=== PATIENT | male | born 1940 | race Hispanic/Latino ===

== ENCOUNTER 2020-07-04 18:33 | Emergency (ER) | payer MEDICARE, OTHER ==
[~2020-07-04 18:33] MED LIST: FISH12002 PO; LEVO500T2 PO; LOSA25TA41 PO; OMEP20CA12 PO; OSEL75 PO; PRAV20TA4 PO; TRAM50TA4 PO
[2020-07-04 19:13] LABS: BASOPHILS % (AUTO) 0.1 % (0.0-5.0); EOSINOPHILS % (AUTO) 4.9 % (0.0-8.0); HEMATOCRIT 32.6 % (42-54); LYMPHOCYTES % (AUTO) 18.3 % (21.0-51.0); MEAN CORPUSCULAR HEMOGLOBIN 30.1 pg (27.0-33.0); MEAN CORPUSCULAR HGB CONC 32.2 g/dL (32.0-36.0); MEAN CORPUSCULAR VOLUME 93.4 fL (79-99); MONOCYTES % (AUTO) 11.7 % (3.0-13.0); NEUTROPHILS % (AUTO) 64.7 % (40.0-77.0); PLATELET COUNT (AUTO) 301 K/uL (130-400); RED BLOOD CELL COUNT(AUTO) 3.49 MIL/uL (4.50-6.20); RED CELL DISTRIBUTION WIDTH 13.6 % (11.0-15.5); WHITE BLOOD COUNT (AUTO) 9.6 K/uL (4.8-10.8)
[2020-07-04] MEDS ORDERED: ONDANSETRON HCL 4 MG/2 ML VIAL ONE ×2 (19:21→21:46)
[2020-07-04] MEDS ORDERED: MORPHINE SULFATE 4 MG/1ML SYG ONE ×2 (19:21→21:44)
[2020-07-04 19:25] LABS: APPEARANCE,URINE Cloudy (CLEAR); BILIRUBIN,URINE Negative (NEGATIVE); COLOR,URINE Yellow (YELLOW); GLUCOSE, URINE (UA) Negative (NEGATIVE); KETONES,URINE Negative (NEGATIVE); LEUKOCYTE ESTERASE ,URINE Trace (NEGATIVE); NITRATE,URINE Negative (NEGATIVE); OCCULT BLOOD,URINE Large (NEGATIVE); PROTEIN,URINE Trace mg/dL (NEGATIVE)
[2020-07-04 19:26] LABS: CREATININE 1.1 mg/dL (0.5-1.5); POTASSIUM 3.7 mmol/L (3.5-5.1)
[2020-07-04 19:31] LABS: ALBUMIN 2.6 g/dL (3.5-5.0); BILIRUBIN,TOTAL 0.2 mg/dL (0.2-1.0); TOTAL PROTEIN, SERUM 7.1 g/dL (6.0-8.3)
[2020-07-04 19:36] LABS: BACTERIA,URINE Rare /HPF (None Seen); YEAST,URINE BUDDING Few /HPF (None Seen)
[2020-07-04 19:37] LABS: SQUAMOUS EPITHELIAL CELL,UR Rare /HPF (0-2)
[2020-07-04] MEDS ORDERED: IOHEXOL-350 75 ML VIAL IV ONE (19:50)
== END 2020-07-04 22:44 | disposition home or self-care (01) ==
LOC: EDH 18:33
DX: N28.1 Cyst of kidney, acquired (principal); R10.11 Right upper quadrant pain; R31.9 Hematuria, unspecified; K76.0 Fatty (change of) liver, not elsewhere classified; K83.8 Other specified diseases of biliary tract; I10 Essential (primary) hypertension; G43.909 Migraine, unspecified, not intractable, without status migrainosus
CPT/HCPCS: 36415; 71045; 74177; 76705; 80053; 81001; 83605; 83690; 85025; 87040 ×2; 96374; 96375; 99285; J2270 ×2; J2405 ×2; Q9967

== ENCOUNTER 2020-08-09 18:42 | Emergency (ER) | payer OTHER ==
[2020-08-09] MEDS ORDERED: CYCLOBENZAPRINE HCL 10 MG TABLET ONE (19:12)
[2020-08-09] MEDS ORDERED: HYDROCODONE/ACETAMINOPHEN 10/325 MG TAB ONE (19:13)
[2020-08-09 19:49] LABS: BASOPHILS % (AUTO) 0.3 % (0.0-5.0); HEMATOCRIT 26.3 % (42-54); LYMPHOCYTES % (AUTO) 9.8 % (21.0-51.0); MEAN CORPUSCULAR HEMOGLOBIN 29.7 pg (27.0-33.0); MEAN CORPUSCULAR HGB CONC 32.7 g/dL (32.0-36.0); MEAN CORPUSCULAR VOLUME 90.7 fL (79-99); MONOCYTES % (AUTO) 9.1 % (3.0-13.0); PLATELET COUNT (AUTO) 260 K/uL (130-400); RED CELL DISTRIBUTION WIDTH 15.2 % (11.0-15.5); WHITE BLOOD COUNT (AUTO) 13.1 K/uL (4.8-10.8)
[2020-08-09 19:51] LABS: APPEARANCE,URINE Clear (CLEAR); BILIRUBIN,URINE Negative (NEGATIVE); COLOR,URINE Yellow (YELLOW); GLUCOSE, URINE (UA) Negative (NEGATIVE); KETONES,URINE Negative (NEGATIVE); LEUKOCYTE ESTERASE ,URINE Small (NEGATIVE); NITRATE,URINE Negative (NEGATIVE); OCCULT BLOOD,URINE Large (NEGATIVE); PH,URINE 5.5 (5.0-8.0); PROTEIN,URINE POS 2+ mg/dL (NEGATIVE)
[2020-08-09 20:01] LABS: CREATININE 1.5 mg/dL (0.5-1.5); POTASSIUM 4.2 mmol/L (3.5-5.1)
[2020-08-09 20:06] LABS: ALBUMIN 2.3 g/dL (3.5-5.0); BILIRUBIN,TOTAL 0.3 mg/dL (0.2-1.0); TOTAL PROTEIN, SERUM 8.1 g/dL (6.0-8.3)
[2020-08-09 20:07] LABS: BACTERIA,URINE Few /HPF (None Seen); MUCUS,URINE Few LPF (None Seen); SQUAMOUS EPITHELIAL CELL,UR Few /HPF (0-2)
[2020-08-09] MEDS ORDERED: LIDOCAINE HCL-MPF 1% 2ML VIAL ONE (20:28)
[2020-08-09] MEDS ORDERED: CEFTRIAXONE SODIUM 1 GM ONE (20:28)
== END 2020-08-09 21:14 | disposition home or self-care (01) ==
LOC: EDH 18:42
DX: D64.9 Anemia, unspecified (principal); N30.90 Cystitis, unspecified without hematuria; G62.9 Polyneuropathy, unspecified; I10 Essential (primary) hypertension; G43.909 Migraine, unspecified, not intractable, without status migrainosus
CPT/HCPCS: 36415; 80053; 81001; 85025; 96372; 99283; J0696; J3490

== ENCOUNTER 2020-08-19 10:06 | Observation (INO) | payer OTHER ==
[~2020-08-19] VITALS: Ht 162.6 cm; Wt 67.0 kg
[2020-08-19 10:54] LABS: BASOPHILS % (AUTO) 0.1 % (0.0-5.0); EOSINOPHILS % (AUTO) 0.2 % (0.0-8.0); HEMATOCRIT 25.1 % (42-54); LYMPHOCYTES % (AUTO) 6.1 % (21.0-51.0); MEAN CORPUSCULAR HEMOGLOBIN 28.2 pg (27.0-33.0); MEAN CORPUSCULAR HGB CONC 31.5 g/dL (32.0-36.0); MEAN CORPUSCULAR VOLUME 89.6 fL (79-99); MONOCYTES % (AUTO) 6.7 % (3.0-13.0); NEUTROPHILS % (AUTO) 85.8 % (40.0-77.0); PLATELET COUNT (AUTO) 365 K/uL (130-400); RED CELL DISTRIBUTION WIDTH 15.6 % (11.0-15.5); WHITE BLOOD COUNT (AUTO) 15.8 K/uL (4.8-10.8)
[2020-08-19] MEDS ORDERED: ONDANSETRON 4MG INJ ONE (10:56)
[2020-08-19 11:15] LABS: ALBUMIN 1.9 g/dL (3.5-5.0); BILIRUBIN,TOTAL 0.3 mg/dL (0.2-1.0); CREATININE 1.3 mg/dL (0.5-1.5); TOTAL PROTEIN, SERUM 7.6 g/dL (6.0-8.3)
[2020-08-19 11:18] LABS: B-TYPE NATRIURETIC PEPTIDE 320 pg/mL (0-100)
[2020-08-19] MEDS ORDERED: LEVOFLOXACIN 500 MG/D5W 100 ML 100 ML ONE (12:39)
[2020-08-19 12:40] LABS: APPEARANCE,URINE CLEAR (CLEAR); BILIRUBIN,URINE NEGATIVE (NEGATIVE); COLOR,URINE YELLOW (YELLOW); GLUCOSE, URINE (UA) NEGATIVE (NEGATIVE); KETONES,URINE NEGATIVE (NEGATIVE); LEUKOCYTE ESTERASE ,URINE NEGATIVE (NEGATIVE); NITRATE,URINE NEGATIVE (NEGATIVE); OCCULT BLOOD,URINE LARGE (NEGATIVE); PH,URINE 5.5 (5.0-8.0); PROTEIN,URINE 100 mg/dL (NEGATIVE)
[2020-08-19 13:08] LABS: BACTERIA,URINE Few /HPF (None Seen)
[2020-08-19] MEDS ORDERED: KCL 20 MEQ ERTAB PO PRN (16:00)
[2020-08-19] MEDS ORDERED: ONDANSETRON 4MG INJ IVP PRN (16:00)
[2020-08-19] MEDS ORDERED: POTASSIUM CHLORIDE 20MEQ/100ML 100 ML IV PRN ×2 (16:00)
[2020-08-19] MEDS ORDERED: ACETAMINOPHEN 650 MG SUPPOSITORY RC PRN (16:00)
[2020-08-19] MEDS ORDERED: DEXTROSE 50%-WATER 50 ML DISP.SYRIN IV PRN (16:00)
[2020-08-19] MEDS ORDERED: DOCUSATE SODIUM 100 MG CAP PO PRN (16:00)
[2020-08-19] MEDS ORDERED: ACETAMINOPHEN 325 MG TAB PO PRN (16:00)
[2020-08-19] MEDS ORDERED: LIDOCAINE HCL-MPF 1% 2ML VIAL IV PRN ×2 (16:00)
[2020-08-19] MEDS ORDERED: GLUCAGON 1MG KIT 1 MG ML IM PRN (16:00)
[2020-08-19] MEDS ORDERED: LACTULOSE 20 GM/30 ML UDCUP PO PRN (16:00)
[2020-08-19] MEDS: INSULIN HUMULIN R 100 UNIT/ML 3ML SQ SCH ×3 (16:30→21:35)
[2020-08-19] MEDS: METRONIDAZOLE 500MG/100ML BAG 100 ML IVPB SCH (17:00)
[2020-08-19 20:35] VITALS: BP 189/93
[2020-08-19 23:10] VITALS: BP 183/93
[2020-08-20] VITALS (16 sets, daily range): BP systolic 96–174; BP diastolic 50–78
[2020-08-20] MEDS: METRONIDAZOLE 500MG/100ML BAG 100 ML IVPB SCH ×3 (01:08→16:53)
[2020-08-20 05:58] LABS: BASOPHILS % (AUTO) 0.1 % (0.0-5.0); EOSINOPHILS % (AUTO) 0.1 % (0.0-8.0); HEMATOCRIT 23.9 % (42-54); LYMPHOCYTES % (AUTO) 8.5 % (21.0-51.0); MEAN CORPUSCULAR HEMOGLOBIN 29.1 pg (27.0-33.0); MEAN CORPUSCULAR HGB CONC 32.6 g/dL (32.0-36.0); MEAN CORPUSCULAR VOLUME 89.2 fL (79-99); MONOCYTES % (AUTO) 6.9 % (3.0-13.0); NEUTROPHILS % (AUTO) 83.5 % (40.0-77.0); PLATELET COUNT (AUTO) 322 K/uL (130-400); RED BLOOD CELL COUNT(AUTO) 2.68 MIL/uL (4.50-6.20); RED CELL DISTRIBUTION WIDTH 15.9 % (11.0-15.5); WHITE BLOOD COUNT (AUTO) 16.3 K/uL (4.8-10.8)
[2020-08-20 06:15] LABS: INR 1.14 (0.85-1.15); PROTHROMBIN TIME 12.3 SEC (9.6-11.6)
[2020-08-20 06:17] LABS: PARTIAL THROMBOPLASTIN TIME 27.2 SEC (26.3-35.5)
[2020-08-20 06:24] LABS: % IRON SATURATION 19.3 % (30-44)
[2020-08-20 06:28] LABS: CREATININE 1.2 mg/dL (0.5-1.5); MAGNESIUM 1.8 mg/dL (1.80-2.40); PHOSPHORUS 3.5 mg/dL (2.5-4.9); POTASSIUM 3.1 mmol/L (3.5-5.1)
[2020-08-20] MEDS ORDERED: PROPOFOL 10 MG/ML 20ML VIAL IV ONE (08:20)
[2020-08-20] MEDS ORDERED: LIDOCAINE HCL 1% 20 ML VIAL ONE (08:20)
[2020-08-20] MEDS ORDERED: LEVOFLOXACIN 500 MG/D5W 100 ML IV SCH (09:00)
[2020-08-20] MEDS: POLYETHYLENE GLYCOL 3350 17 GM POWD.PACK PO SCH (10:48)
[2020-08-20] MEDS: PANTOPRAZOLE 40 MG TAB DR PO SCH (10:48)
[2020-08-20] MEDS: POTASSIUM CHLORIDE 10% ELIXIR 20 MEQ/15 ML UDCUP PO PRN ×3 (10:49→16:46)
[2020-08-20] MEDS: INSULIN HUMULIN R 100 UNIT/ML 3ML SQ SCH ×3 (11:30→21:00)
[2020-08-20] MEDS: LEVOFLOXACIN 250 MG/D5W 50ML 50 ML IVPB SCH (11:47)
[2020-08-20] MEDS ORDERED: COMPOUND IV MISC 1 EACH IVSOLN MISC PRN (18:30)
[2020-08-21 00:40] VITALS: BP 139/75
[2020-08-21 00:41] VITALS: BP 115/74
[2020-08-21] MEDS: METRONIDAZOLE 500MG/100ML BAG 100 ML IVPB SCH ×2 (01:00→08:02)
[2020-08-21 04:00] VITALS: BP 157/71
[2020-08-21 05:03] LABS: HEMATOCRIT 22.9 % (42-54); MEAN CORPUSCULAR HEMOGLOBIN 28.7 pg (27.0-33.0); MEAN CORPUSCULAR HGB CONC 31.4 g/dL (32.0-36.0); MEAN CORPUSCULAR VOLUME 91.2 fL (79-99); RED BLOOD CELL COUNT(AUTO) 2.51 MIL/uL (4.50-6.20); RED CELL DISTRIBUTION WIDTH 16.4 % (11.0-15.5); WHITE BLOOD COUNT (AUTO) 14.4 K/uL (4.8-10.8)
[2020-08-21 05:24] LABS: CREATININE 1.3 mg/dL (0.5-1.5); POTASSIUM 3.7 mmol/L (3.5-5.1)
[2020-08-21] MEDS: INSULIN HUMULIN R 100 UNIT/ML 3ML SQ SCH ×3 (06:04→16:00)
[2020-08-21] MEDS ORDERED: HYDROCODONE/ACETAMINOPHEN 5/325 MG TAB ONE (06:21)
[2020-08-21 07:58] VITALS: BP 133/62
[2020-08-21] MEDS: PANTOPRAZOLE 40 MG TAB DR PO SCH (08:02)
[2020-08-21] MEDS: POLYETHYLENE GLYCOL 3350 17 GM POWD.PACK PO SCH (08:02)
[2020-08-21] MEDS ORDERED: HYDROCODONE/ACETAMINOPHEN 5/325 MG TAB PO SCH (08:19)
[2020-08-21] MEDS ORDERED: COMPOUND IV MISC 1 EACH IVSOLN MISC PRN (08:30)
[2020-08-21] MEDS ORDERED: IRON SUCROSE COMPLEX 100 MG in 0.9%NACL 50ML 50 ML IV SCH (09:00)
[2020-08-21] MEDS: LEVOFLOXACIN 250 MG/D5W 50ML 50 ML IVPB SCH (11:20)
[2020-08-21 12:17] VITALS: BP 140/72
[2020-08-21] MEDS ORDERED: FERR324T PO (15:44)
[2020-08-21] MEDS ORDERED: LEVO500T90 PO (15:44)
[2020-08-21] MEDS ORDERED: POLY17PO4 PO (15:44)
[2020-08-21] MEDS ORDERED: METR500T PO (15:44)
[2020-08-21] MEDS ORDERED: PANT40GR PO (15:44)
[2021-02-06] MEDS ORDERED: CYCL10TA16 PO (13:52)
== END 2020-08-21 17:36 | disposition home or self-care (01) ==
LOC: EDH 10:06 → EDHIP 15:55 → 4CH 20:10
PROVIDERS: ADMIT Internal Medicine Critical Care Medicine; ATTEND Internal Medicine Critical Care Medicine
DX: K29.70 Gastritis, unspecified, without bleeding (principal); Z20.822 Contact with and (suspected) exposure to COVID-19; R13.10 Dysphagia, unspecified; D64.9 Anemia, unspecified; I10 Essential (primary) hypertension; N39.0 Urinary tract infection, site not specified; N40.0 Benign prostatic hyperplasia without lower urinary tract symptoms; N28.9 Disorder of kidney and ureter, unspecified; G89.29 Other chronic pain; M54.9 Dorsalgia, unspecified; G43.909 Migraine, unspecified, not intractable, without status migrainosus; Z87.891 Personal history of nicotine dependence; Z79.899 Other long term (current) drug therapy
CPT/HCPCS: 36415 ×3; 43239; 71045; 74176; 80048 ×2; 80053; 81001; 82550; 82948 ×7; 83540; 83550; 83605; 83690; 83735; 83880; 84100; 84484; 85025 ×2; 85027; 85610; 85730; 86850; 86900; 86901; 87040 ×2; 87426; 88305; 88342; 92610; 93005; 96365; 96366 ×4; 96367; 96368; 96375; 99285; A4215; A4222; A4223; A4606; A4620; A4657; G0378 ×48; J1756; J1956 ×3; J2405 ×3; J2704; J3490 ×4; J7030; U0003

== ENCOUNTER 2020-08-27 20:11 | Inpatient (IN) | payer OTHER ==
[~2020-08-27] VITALS: Ht 162.6 cm; Wt 65.3 kg
[~2020-08-27 20:11] MED LIST changes: +FERR324T PO; -LEVO500T2 PO; +LEVO500T90 PO; +METR500T PO; -OMEP20CA12 PO; -OSEL75 PO; +PANT40GR PO; +POLY17PO4 PO
[2020-08-27 22:18] LABS: BASOPHILS % (AUTO) 0.2 % (0.0-5.0); LYMPHOCYTES % (AUTO) 2.7 % (21.0-51.0); MEAN CORPUSCULAR HEMOGLOBIN 29.7 pg (27.0-33.0); MEAN CORPUSCULAR HGB CONC 33.1 g/dL (32.0-36.0); MEAN CORPUSCULAR VOLUME 89.7 fL (79-99); MONOCYTES % (AUTO) 2.4 % (3.0-13.0); NEUTROPHILS % (AUTO) 93.2 % (40.0-77.0); PLATELET COUNT (AUTO) 372 K/uL (130-400); WHITE BLOOD COUNT (AUTO) 24.1 K/uL (4.8-10.8)
[2020-08-27 22:28] LABS: CREATININE 1.8 mg/dL (0.5-1.5); POTASSIUM 3.2 mmol/L (3.5-5.1)
[2020-08-27 22:30] LABS: INR 1.21 (0.85-1.15)
[2020-08-27 22:31] LABS: PARTIAL THROMBOPLASTIN TIME 28.2 SEC (26.3-35.5)
[2020-08-27 22:32] LABS: APPEARANCE,URINE Clear (CLEAR); BILIRUBIN,URINE Negative (NEGATIVE); COLOR,URINE Dark Yellow (YELLOW); GLUCOSE, URINE (UA) 250 mg/dL (NEGATIVE); KETONES,URINE Trace mg/dL (NEGATIVE); LEUKOCYTE ESTERASE ,URINE Small (NEGATIVE); NITRATE,URINE Negative (NEGATIVE); OCCULT BLOOD,URINE Large (NEGATIVE); PROTEIN,URINE POS 2+ mg/dL (NEGATIVE)
[2020-08-27 22:41] LABS: ALBUMIN 2.1 g/dL (3.5-5.0); BILIRUBIN,TOTAL 0.4 mg/dL (0.2-1.0); TOTAL PROTEIN, SERUM 7.6 g/dL (6.0-8.3)
[2020-08-27] MEDS ORDERED: METOCLOPRAMIDE 10 MG/2 ML VIAL ONE (22:47)
[2020-08-27] MEDS ORDERED: ONDANSETRON 4MG INJ ONE (22:47)
[2020-08-27] MEDS ORDERED: PANTOPRAZOLE 40 MG/VIAL ONE (22:48)
[2020-08-27] MEDS ORDERED: FAMOTIDINE 20MG VIAL IV ONE (22:48)
[2020-08-27 22:49] LABS: BACTERIA,URINE Rare /HPF (None Seen)
[2020-08-27 22:53] LABS: B-TYPE NATRIURETIC PEPTIDE 165 pg/mL (0-100)
[2020-08-27] MEDS ORDERED: ZOSYN 3.375GM+NS 50ML 50 ML IV ONE (23:32)
[2020-08-28] MEDS ORDERED: MORPHINE 2 MG SYG ONE (01:06)
[2020-08-28] MEDS ORDERED: MAG/ALUM/SIMETH 30 ML UDCUP PO PRN (01:15)
[2020-08-28] MEDS ORDERED: MORPHINE 2 MG SYG IV PRN (01:15)
[2020-08-28] MEDS: 0.9%NACL 1000ML 1,000 ML IV SCH ×4 (01:15→21:40)
[2020-08-28] MEDS ORDERED: POTASSIUM BICARB/CIT AC 25 MEQ TABLET.EFF PO SCH (01:30)
[2020-08-28] MEDS ORDERED: POTASSIUM BICARB/CIT AC 25 MEQ TABLET.EFF ONE (02:11)
[2020-08-28] MEDS ORDERED: PHARMACY COMMUNICATION MISC SCH (02:30)
[2020-08-28] MEDS ORDERED: ZOSYN 3.375GM+NS 50ML 50 ML IV SCH (05:00)
[2020-08-28] MEDS: METOCLOPRAMIDE 10 MG/2 ML VIAL IVP SCH ×3 (07:30→17:00)
[2020-08-28] MEDS ORDERED: POTASSIUM CHLORIDE 20MEQ/100ML 100 ML IV PRN (08:00)
[2020-08-28] MEDS ORDERED: LIDOCAINE HCL-MPF 1% 2ML VIAL IV PRN (08:00)
[2020-08-28] MEDS ORDERED: DEXTROSE 50%-WATER 50 ML DISP.SYRIN IV PRN (08:00)
[2020-08-28] MEDS ORDERED: POTASSIUM CHLORIDE 10% ELIXIR 20 MEQ/15 ML UDCUP PO PRN (08:00)
[2020-08-28] MEDS ORDERED: GLUCAGON 1MG KIT 1 MG ML IM PRN (08:00)
[2020-08-28] MEDS ORDERED: METOCLOPRAMIDE 10 MG/2 ML VIAL ONE (08:08)
[2020-08-28] MEDS ORDERED: ZOSYN 3.375GM+NS 50ML 50 ML IV ONE (08:09)
[2020-08-28] MEDS ORDERED: FAMOTIDINE 20MG VIAL IV ONE (08:09)
[2020-08-28] MEDS ORDERED: LOSARTAN 50 MG TABLET ONE (08:10)
[2020-08-28] MEDS ORDERED: POLYETHYLENE GLYCOL 3350 17 GM POWD.PACK ONE (08:10)
[2020-08-28] MEDS ORDERED: LACTULOSE 20 GM/30 ML UDCUP ONE (08:10)
[2020-08-28] MEDS ORDERED: 0.9%NACL 1000ML 1,000 ML IV ONE (08:14)
[2020-08-28 08:21] LABS: MEAN CORPUSCULAR HEMOGLOBIN 29.3 pg (27.0-33.0); MEAN CORPUSCULAR VOLUME 88.8 fL (79-99); RED BLOOD CELL COUNT(AUTO) 2.59 MIL/uL (4.50-6.20); RED CELL DISTRIBUTION WIDTH 16.9 % (11.0-15.5); WHITE BLOOD COUNT (AUTO) 19.3 K/uL (4.8-10.8)
[2020-08-28 08:52] LABS: CREATININE 1.3 mg/dL (0.5-1.5); POTASSIUM 3.2 mmol/L (3.5-5.1)
[2020-08-28] MEDS: POLYETHYLENE GLYCOL 3350 17 GM POWD.PACK PO SCH (09:00)
[2020-08-28] MEDS: LACTULOSE 20 GM/30 ML UDCUP PO SCH ×2 (09:00→20:29)
[2020-08-28] MEDS: FAMOTIDINE 20MG VIAL IV SCH ×2 (09:00→20:29)
[2020-08-28] MEDS: LOSARTAN 25 MG TABLET PO SCH (09:00)
[2020-08-28] MEDS ORDERED: POTASSIUM CHLORIDE 10% ELIXIR 20 MEQ/15 ML UDCUP ONE ×2 (09:38→14:26)
[2020-08-28] MEDS: INSULIN HUMULIN R 100 UNIT/ML 3ML SQ SCH ×3 (11:30→21:00)
[2020-08-28] MEDS ORDERED: MORPHINE 2 MG SYG IVP PRN (12:15)
[2020-08-28] MEDS: LEVOFLOXACIN 500 MG/D5W 100 ML 100 ML IV SCH (15:00)
[2020-08-28] MEDS ORDERED: LEVOFLOXACIN 500 MG/D5W 100 ML 100 ML ONE (15:56)
[2020-08-28 16:30] VITALS: BP 154/81
[2020-08-28 19:42] VITALS: BP 155/80
[2020-08-28] MEDS ORDERED: VERA240T95 PO (20:26)
[2020-08-28] MEDS ORDERED: ONDA4TAB4 PO (20:26)
[2020-08-28] MEDS ORDERED: FERS325 PO (20:26)
[2020-08-28] MEDS ORDERED: METR-172 PO (20:26)
[2020-08-28] MEDS: ATORVASTATIN 10 MG TABLET PO SCH (20:29)
[2020-08-28] MEDS: KCL 20 MEQ ERTAB PO PRN (20:43)
[2020-08-28] MEDS: METRONIDAZOLE 500MG/100ML BAG 100 ML IVPB SCH (21:38)
[2020-08-29 00:11] VITALS: BP 145/80
[2020-08-29] MEDS: 0.9%NACL 1000ML 1,000 ML IV SCH ×4 (02:58→19:25)
[2020-08-29 03:51] VITALS: BP 142/81
[2020-08-29 05:18] LABS: BASOPHILS % (AUTO) 0.1 % (0.0-5.0); EOSINOPHILS % (AUTO) 0.2 % (0.0-8.0); HEMATOCRIT 21.9 % (42-54); LYMPHOCYTES % (AUTO) 7.6 % (21.0-51.0); MEAN CORPUSCULAR HEMOGLOBIN 28.8 pg (27.0-33.0); MEAN CORPUSCULAR HGB CONC 31.5 g/dL (32.0-36.0); MEAN CORPUSCULAR VOLUME 91.3 fL (79-99); MONOCYTES % (AUTO) 6.2 % (3.0-13.0); NEUTROPHILS % (AUTO) 84.9 % (40.0-77.0); PLATELET COUNT (AUTO) 268 K/uL (130-400); RED CELL DISTRIBUTION WIDTH 17.6 % (11.0-15.5); WHITE BLOOD COUNT (AUTO) 17.1 K/uL (4.8-10.8)
[2020-08-29] MEDS: METRONIDAZOLE 500MG/100ML BAG 100 ML IVPB SCH ×3 (05:21→20:34)
[2020-08-29] MEDS: METOCLOPRAMIDE 10 MG/2 ML VIAL IVP SCH ×3 (05:21→17:44)
[2020-08-29 05:41] LABS: ALBUMIN 1.4 g/dL (3.5-5.0); BILIRUBIN,TOTAL 0.3 mg/dL (0.2-1.0); CREATININE 1.3 mg/dL (0.5-1.5); POTASSIUM 3.8 mmol/L (3.5-5.1); TOTAL PROTEIN, SERUM 5.6 g/dL (6.0-8.3)
[2020-08-29] MEDS: INSULIN HUMULIN R 100 UNIT/ML 3ML SQ SCH ×4 (06:08→20:34)
[2020-08-29 06:55] LABS: HEMATOCRIT 21.3 % (42-54)
[2020-08-29 08:00] VITALS: BP 139/77
[2020-08-29] MEDS: LACTULOSE 20 GM/30 ML UDCUP PO SCH ×2 (09:00→20:33)
[2020-08-29] MEDS: LOSARTAN 25 MG TABLET PO SCH (09:00)
[2020-08-29] MEDS: POLYETHYLENE GLYCOL 3350 17 GM POWD.PACK PO SCH (09:00)
[2020-08-29] MEDS: FAMOTIDINE 20MG VIAL IV SCH ×2 (11:29→20:33)
[2020-08-29 12:07] VITALS: BP 134/79
[2020-08-29] MEDS: LEVOFLOXACIN 500 MG/D5W 100 ML 100 ML IV SCH (15:17)
[2020-08-29] MEDS ORDERED: SINCALIDE 5 MCG ML VIAL IV ONE (16:25)
[2020-08-29 19:00] LABS: HEMATOCRIT 23.9 % (42-54); MEAN CORPUSCULAR HEMOGLOBIN 29.3 pg (27.0-33.0); MEAN CORPUSCULAR HGB CONC 32.2 g/dL (32.0-36.0); MEAN CORPUSCULAR VOLUME 90.9 fL (79-99); PLATELET COUNT (AUTO) 258 K/uL (130-400); RED BLOOD CELL COUNT(AUTO) 2.63 MIL/uL (4.50-6.20); WHITE BLOOD COUNT (AUTO) 15.9 K/uL (4.8-10.8)
[2020-08-29 19:31] LABS: % IRON SATURATION 13.4 % (30-44)
[2020-08-29 20:00] VITALS: BP_SYST 127; BP_SYST 144; BP_DIAS 61; BP_DIAS 70
[2020-08-29 20:19] LABS: EOSINOPHILS % (MANUAL) 1 % (1-6); LYMPHOCYTES % (MANUAL) 7 % (22-44); MONOCYTES % (MANUAL) 1 % (2-9); SEGMENTED NEUTROPHILS % 91 % (40-70)
[2020-08-29 20:20] LABS: MAN.DIFF COMMENT-IMPRESSION MANUAL DIFFERENTIAL
[2020-08-29 20:26] LABS: PLATELET MORPHOLOGY COMMENT LARGE PLTS PRESENT
[2020-08-29] MEDS: ATORVASTATIN 10 MG TABLET PO SCH (20:32)
[2020-08-30] VITALS: BP 137/75
[2020-08-30] MEDS: 0.9%NACL 1000ML 1,000 ML IV SCH ×2 (03:41→10:27)
[2020-08-30 04:00] VITALS: BP 147/78
[2020-08-30] MEDS: METRONIDAZOLE 500MG/100ML BAG 100 ML IVPB SCH ×2 (05:16→13:07)
[2020-08-30 05:48] LABS: HEMATOCRIT 23.6 % (42-54); MEAN CORPUSCULAR HGB CONC 31.8 g/dL (32.0-36.0); MEAN CORPUSCULAR VOLUME 91.1 fL (79-99); RED BLOOD CELL COUNT(AUTO) 2.59 MIL/uL (4.50-6.20)
[2020-08-30 06:08] LABS: CREATININE 1.3 mg/dL (0.5-1.5); POTASSIUM 3.3 mmol/L (3.5-5.1)
[2020-08-30] MEDS: INSULIN HUMULIN R 100 UNIT/ML 3ML SQ SCH ×4 (06:22→21:00)
[2020-08-30] MEDS: METOCLOPRAMIDE 10 MG/2 ML VIAL IVP SCH ×3 (06:27→16:49)
[2020-08-30] MEDS: KCL 20 MEQ ERTAB PO PRN ×3 (06:28→16:58)
[2020-08-30 08:00] VITALS: BP 131/76
[2020-08-30] MEDS: LACTULOSE 20 GM/30 ML UDCUP PO SCH ×2 (10:28→20:49)
[2020-08-30] MEDS: POLYETHYLENE GLYCOL 3350 17 GM POWD.PACK PO SCH (10:28)
[2020-08-30] MEDS: FAMOTIDINE 20MG VIAL IV SCH ×2 (10:29→20:49)
[2020-08-30] MEDS: LOSARTAN 25 MG TABLET PO SCH (10:29)
[2020-08-30 12:00] VITALS: BP 130/71
[2020-08-30] MEDS ORDERED: PEG 3350/NA SULF,BICARB,CL/KCL 4000 ML SOLN PO SCH ×2 (15:00→22:00)
[2020-08-30 16:00] VITALS: BP 147/76
[2020-08-30] MEDS: LEVOFLOXACIN 500 MG/D5W 100 ML 100 ML IV SCH (16:49)
[2020-08-30 20:00] VITALS: BP 152/79
[2020-08-30] MEDS: ATORVASTATIN 10 MG TABLET PO SCH (20:49)
[2020-08-30] MEDS: DEXTROSE 5%-LACTATED RINGERS 1,000 ML IV SCH (20:51)
[2020-08-30] MEDS ORDERED: PROMETHAZINE HCL 25 MG/ML 1ML AMPULE IM PRN (21:30)
[2020-08-30] MEDS: BISACODYL 5 MG TABLET.DR PO SCH (21:43)
[2020-08-30] MEDS: ONDANSETRON 4MG INJ IVP PRN (21:43)
[2020-08-31] VITALS (19 sets, daily range): BP systolic 114–161; BP diastolic 43–88
[2020-08-31] MEDS: METRONIDAZOLE 500MG/100ML BAG 100 ML IVPB SCH ×4 (03:01→21:39)
[2020-08-31 05:48] LABS: MEAN CORPUSCULAR HEMOGLOBIN 29.4 pg (27.0-33.0); MEAN CORPUSCULAR HGB CONC 32.6 g/dL (32.0-36.0); MEAN CORPUSCULAR VOLUME 90.2 fL (79-99); RED BLOOD CELL COUNT(AUTO) 2.55 MIL/uL (4.50-6.20); WHITE BLOOD COUNT (AUTO) 12.1 K/uL (4.8-10.8)
[2020-08-31 06:01] LABS: CREATININE 1.3 mg/dL (0.5-1.5); POTASSIUM 3.6 mmol/L (3.5-5.1)
[2020-08-31] MEDS ORDERED: PEG 3350/NA SULF,BICARB,CL/KCL 4000 ML SOLN PO SCH (07:00)
[2020-08-31] MEDS: INSULIN HUMULIN R 100 UNIT/ML 3ML SQ SCH ×4 (07:30→21:00)
[2020-08-31] MEDS: LACTULOSE 20 GM/30 ML UDCUP PO SCH ×2 (09:00→21:00)
[2020-08-31] MEDS: POLYETHYLENE GLYCOL 3350 17 GM POWD.PACK PO SCH (09:00)
[2020-08-31] MEDS: BISACODYL 5 MG TABLET.DR PO SCH ×2 (09:00→21:03)
[2020-08-31] MEDS: METOCLOPRAMIDE 10 MG/2 ML VIAL IVP SCH ×3 (09:57→17:24)
[2020-08-31] MEDS: FAMOTIDINE 20MG VIAL IV SCH ×2 (09:57→21:04)
[2020-08-31] MEDS: DEXTROSE 5%-LACTATED RINGERS 1,000 ML IV SCH (10:18)
[2020-08-31] MEDS: LEVOFLOXACIN 500 MG/D5W 100 ML 100 ML IV SCH (14:17)
[2020-08-31] MEDS ORDERED: PROPOFOL 10 MG/ML 20ML VIAL IV ONE ×2 (14:42)
[2020-08-31] MEDS: LOSARTAN 25 MG TABLET PO SCH (17:25)
[2020-08-31] MEDS: ATORVASTATIN 10 MG TABLET PO SCH (21:03)
[2020-09-01] VITALS (13 sets, daily range): BP systolic 117–159; BP diastolic 55–83
[2020-09-01] MEDS: METRONIDAZOLE 500MG/100ML BAG 100 ML IVPB SCH ×3 (05:52→21:44)
[2020-09-01 05:53] LABS: BASOPHILS % (AUTO) 0.1 % (0.0-5.0); EOSINOPHILS % (AUTO) 1.9 % (0.0-8.0); HEMATOCRIT 22.6 % (42-54); LYMPHOCYTES % (AUTO) 10.8 % (21.0-51.0); MEAN CORPUSCULAR HEMOGLOBIN 29.1 pg (27.0-33.0); MEAN CORPUSCULAR HGB CONC 32.3 g/dL (32.0-36.0); MONOCYTES % (AUTO) 7.5 % (3.0-13.0); NEUTROPHILS % (AUTO) 78.7 % (40.0-77.0); PLATELET COUNT (AUTO) 194 K/uL (130-400); RED BLOOD CELL COUNT(AUTO) 2.51 MIL/uL (4.50-6.20); RED CELL DISTRIBUTION WIDTH 16.5 % (11.0-15.5); WHITE BLOOD COUNT (AUTO) 10.3 K/uL (4.8-10.8)
[2020-09-01 06:10] LABS: ALBUMIN 1.3 g/dL (3.5-5.0); BILIRUBIN,TOTAL 0.3 mg/dL (0.2-1.0); CREATININE 1.2 mg/dL (0.5-1.5); POTASSIUM 3.2 mmol/L (3.5-5.1); TOTAL PROTEIN, SERUM 4.8 g/dL (6.0-8.3)
[2020-09-01 06:14] LABS: INR 1.27 (0.85-1.15); PROTHROMBIN TIME 13.5 SEC (9.6-11.6)
[2020-09-01 06:15] LABS: PARTIAL THROMBOPLASTIN TIME 32.8 SEC (26.3-35.5)
[2020-09-01] MEDS: INSULIN HUMULIN R 100 UNIT/ML 3ML SQ SCH ×4 (06:58→21:00)
[2020-09-01] MEDS: BISACODYL 5 MG TABLET.DR PO SCH ×2 (08:24→21:00)
[2020-09-01] MEDS: LACTULOSE 20 GM/30 ML UDCUP PO SCH ×2 (08:24→21:00)
[2020-09-01] MEDS: POLYETHYLENE GLYCOL 3350 17 GM POWD.PACK PO SCH (08:24)
[2020-09-01] MEDS: LOSARTAN 25 MG TABLET PO SCH (08:34)
[2020-09-01] MEDS: FAMOTIDINE 20MG VIAL IV SCH ×2 (08:34→21:44)
[2020-09-01] MEDS: KCL 20 MEQ ERTAB PO PRN ×3 (08:38→08:44)
[2020-09-01] MEDS: METOCLOPRAMIDE 10 MG/2 ML VIAL IVP SCH ×3 (08:38→17:36)
[2020-09-01] MEDS: DEXTROSE 5%-LACTATED RINGERS 1,000 ML IV SCH (08:39)
[2020-09-01] MEDS ORDERED: IOHEXOL 350 MG/ML 100ML INFUS..BTL IV ONE (09:03)
[2020-09-01] MEDS ORDERED: FENTANYL CITRATE PF 50 MCG/1 ML 2ML VIAL ONE (13:18)
[2020-09-01] MEDS: LEVOFLOXACIN 500 MG/D5W 100 ML 100 ML IV SCH (15:24)
[2020-09-01] MEDS: ATORVASTATIN 10 MG TABLET PO SCH (21:44)
[2020-09-02 04:00] VITALS: BP 138/62
[2020-09-02] MEDS: METRONIDAZOLE 500MG/100ML BAG 100 ML IVPB SCH ×3 (05:30→21:27)
[2020-09-02] MEDS: DEXTROSE 5%-LACTATED RINGERS 1,000 ML IV SCH ×2 (05:31→13:40)
[2020-09-02] MEDS: INSULIN HUMULIN R 100 UNIT/ML 3ML SQ SCH ×4 (05:34→21:00)
[2020-09-02 05:41] LABS: CREATININE 1.2 mg/dL (0.5-1.5); MAGNESIUM 1.4 mg/dL (1.80-2.40)
[2020-09-02 05:42] LABS: POTASSIUM 2.9 mmol/L (3.5-5.1)
[2020-09-02] MEDS: LIDOCAINE HCL-MPF 1% 2ML VIAL IV PRN (06:04)
[2020-09-02] MEDS: POTASSIUM CHLORIDE 20MEQ/100ML 100 ML IV PRN (06:05)
[2020-09-02 07:43] VITALS: BP 149/73
[2020-09-02] MEDS: ONDANSETRON 4MG INJ IVP PRN (07:50)
[2020-09-02] MEDS: POLYETHYLENE GLYCOL 3350 17 GM POWD.PACK PO SCH (09:00)
[2020-09-02] MEDS: BISACODYL 5 MG TABLET.DR PO SCH ×2 (09:00→21:27)
[2020-09-02] MEDS: LACTULOSE 20 GM/30 ML UDCUP PO SCH ×2 (09:00→21:27)
[2020-09-02] MEDS: FAMOTIDINE 20MG VIAL IV SCH ×2 (09:07→21:27)
[2020-09-02] MEDS: METOCLOPRAMIDE 10 MG/2 ML VIAL IVP SCH ×3 (09:07→16:54)
[2020-09-02] MEDS: LOSARTAN 25 MG TABLET PO SCH (09:08)
[2020-09-02] MEDS ORDERED: SUMATRIPTAN SUCCINATE 25 MG TABLET PO SCH (10:45)
[2020-09-02 11:44] VITALS: BP 152/74
[2020-09-02 13:00] LABS: BASOPHILS % (AUTO) 0.2 % (0.0-5.0); EOSINOPHILS % (AUTO) 2.8 % (0.0-8.0); HEMATOCRIT 21.4 % (42-54); LYMPHOCYTES % (AUTO) 12.5 % (21.0-51.0); MEAN CORPUSCULAR HEMOGLOBIN 29.4 pg (27.0-33.0); MEAN CORPUSCULAR HGB CONC 32.2 g/dL (32.0-36.0); MEAN CORPUSCULAR VOLUME 91.1 fL (79-99); MONOCYTES % (AUTO) 7.5 % (3.0-13.0); NEUTROPHILS % (AUTO) 76.3 % (40.0-77.0); PLATELET COUNT (AUTO) 173 K/uL (130-400); RED BLOOD CELL COUNT(AUTO) 2.35 MIL/uL (4.50-6.20); RED CELL DISTRIBUTION WIDTH 16.2 % (11.0-15.5); WHITE BLOOD COUNT (AUTO) 8.5 K/uL (4.8-10.8)
[2020-09-02 13:09] LABS: PHOSPHORUS 3.1 mg/dL (2.5-4.9)
[2020-09-02] MEDS: LEVOFLOXACIN 500 MG/D5W 100 ML 100 ML IV SCH (14:49)
[2020-09-02 16:06] VITALS: BP 156/78
[2020-09-02] MEDS ORDERED: 0.9% NACL 250ML 250 ML IV ONE (17:06)
[2020-09-02 20:00] VITALS: BP 155/76
[2020-09-02] MEDS: ATORVASTATIN 10 MG TABLET PO SCH (21:27)
[2020-09-02 23:30] VITALS: BP 142/68
[2020-09-03] MEDS: DEXTROSE 5%-LACTATED RINGERS 1,000 ML IV SCH (02:45)
[2020-09-03] MEDS: MAGNESIUM 2GM PREMIX 50ML 50 ML IV PRN (02:48)
[2020-09-03 04:00] VITALS: BP 158/56
[2020-09-03] MEDS ORDERED: ACETAMINOPHEN 325 MG TAB ONE (05:19)
[2020-09-03] MEDS: METRONIDAZOLE 500MG/100ML BAG 100 ML IVPB SCH (05:29)
[2020-09-03] MEDS ORDERED: ACETAMINOPHEN 325 MG TAB PO PRN (05:30)
[2020-09-03 05:58] LABS: HEMATOCRIT 28.8 % (42-54); MEAN CORPUSCULAR HEMOGLOBIN 28.6 pg (27.0-33.0); MEAN CORPUSCULAR HGB CONC 32.3 g/dL (32.0-36.0); MEAN CORPUSCULAR VOLUME 88.6 fL (79-99); RED BLOOD CELL COUNT(AUTO) 3.25 MIL/uL (4.50-6.20); RED CELL DISTRIBUTION WIDTH 16.4 % (11.0-15.5); WHITE BLOOD COUNT (AUTO) 8.9 K/uL (4.8-10.8)
[2020-09-03 06:10] LABS: CREATININE 1.2 mg/dL (0.5-1.5); POTASSIUM 3.1 mmol/L (3.5-5.1)
[2020-09-03 06:22] LABS: MAGNESIUM 1.9 mg/dL (1.80-2.40)
[2020-09-03] MEDS: METOCLOPRAMIDE 10 MG/2 ML VIAL IVP SCH ×3 (07:14→17:45)
[2020-09-03] MEDS: POTASSIUM CHLORIDE 20MEQ/100ML 100 ML IV PRN (07:15)
[2020-09-03] MEDS: LIDOCAINE HCL-MPF 1% 2ML VIAL IV PRN (07:16)
[2020-09-03] MEDS: INSULIN HUMULIN R 100 UNIT/ML 3ML SQ SCH ×4 (07:18→21:00)
[2020-09-03] MEDS: KCL 20 MEQ ERTAB PO PRN ×3 (07:19→12:14)
[2020-09-03] MEDS: POLYETHYLENE GLYCOL 3350 17 GM POWD.PACK PO SCH (08:14)
[2020-09-03] MEDS: FAMOTIDINE 20MG VIAL IV SCH ×2 (08:15→20:38)
[2020-09-03] MEDS: BISACODYL 5 MG TABLET.DR PO SCH ×2 (08:15→20:37)
[2020-09-03] MEDS: LACTULOSE 20 GM/30 ML UDCUP PO SCH ×2 (08:15→20:38)
[2020-09-03] MEDS: LOSARTAN 25 MG TABLET PO SCH (08:15)
[2020-09-03 08:16] VITALS: BP 139/72
[2020-09-03 12:32] VITALS: BP 143/78
[2020-09-03] MEDS: LEVOFLOXACIN 500 MG/D5W 100 ML 100 ML IV SCH (15:13)
[2020-09-03 16:00] VITALS: BP 130/70
[2020-09-03 19:00] VITALS: BP 153/78
[2020-09-03] MEDS: ATORVASTATIN 10 MG TABLET PO SCH (20:38)
[2020-09-03] MEDS: ONDANSETRON 4MG INJ IVP PRN (21:51)
[2020-09-03 23:47] VITALS: BP 140/72
[2020-09-04 03:49] VITALS: BP 144/70
[2020-09-04] MEDS: INSULIN HUMULIN R 100 UNIT/ML 3ML SQ SCH ×2 (05:51→10:57)
[2020-09-04 06:14] LABS: HEMATOCRIT 27.2 % (42-54); MEAN CORPUSCULAR HEMOGLOBIN 29.4 pg (27.0-33.0); MEAN CORPUSCULAR HGB CONC 33.5 g/dL (32.0-36.0); RED BLOOD CELL COUNT(AUTO) 3.09 MIL/uL (4.50-6.20); RED CELL DISTRIBUTION WIDTH 16.3 % (11.0-15.5); WHITE BLOOD COUNT (AUTO) 8.3 K/uL (4.8-10.8)
[2020-09-04 06:24] LABS: CREATININE 1.1 mg/dL (0.5-1.5); MAGNESIUM 1.7 mg/dL (1.80-2.40); POTASSIUM 3.4 mmol/L (3.5-5.1)
[2020-09-04] MEDS: METOCLOPRAMIDE 10 MG/2 ML VIAL IVP SCH ×2 (06:30→12:06)
[2020-09-04] MEDS: MAGNESIUM 2GM PREMIX 50ML 50 ML IV PRN (06:30)
[2020-09-04] MEDS: KCL 20 MEQ ERTAB PO PRN ×2 (06:31→09:38)
[2020-09-04 08:09] VITALS: BP 147/88
[2020-09-04] MEDS: LOSARTAN 25 MG TABLET PO SCH (09:37)
[2020-09-04] MEDS: FAMOTIDINE 20MG VIAL IV SCH (09:38)
[2020-09-04 12:00] VITALS: BP 127/78
[2020-09-04] MEDS ORDERED: SUMA25TA25 PO (15:03)
[2020-09-04] MEDS ORDERED: METO5SOL23 PO (15:03)
[2020-09-04] MEDS ORDERED: POLY17PO4 PO (15:03)
[2021-02-06] MEDS ORDERED: CYCL10TA16 PO (13:52)
== END 2020-09-04 17:28 | disposition home or self-care (01) | DRG 394 ==
LOC: EDH 20:11 → OBSVTOIN 08-28 01:08 → EDHIP 08-28 01:08 → 3DH 08-28 01:41 → EDHIP 08-28 02:05 → 3BH 08-28 16:28
PROVIDERS: ADMIT Internal Medicine; ATTEND Internal Medicine
PROC: 30233N1 Transfusion of Nonautologous Red Blood Cells into Peripheral Vein, Percutaneous Approach (ICD-10-PCS; principal; 2020-08-29)
PROC: 0DBK8ZX Excision of Ascending Colon, Via Natural or Artificial Opening Endoscopic, Diagnostic (ICD-10-PCS; 2020-08-31)
PROC: 0DBL8ZX Excision of Transverse Colon, Via Natural or Artificial Opening Endoscopic, Diagnostic (ICD-10-PCS; 2020-08-31)
PROC: 07DR3ZX Extraction of Iliac Bone Marrow, Percutaneous Approach, Diagnostic (ICD-10-PCS; 2020-09-01)
DX: K55.9 Vascular disorder of intestine, unspecified (principal); N17.9 Acute kidney failure, unspecified; N39.0 Urinary tract infection, site not specified; E87.1 Hypo-osmolality and hyponatremia; M62.82 Rhabdomyolysis; K63.3 Ulcer of intestine; D62 Acute posthemorrhagic anemia; K92.2 Gastrointestinal hemorrhage, unspecified; K52.9 Noninfective gastroenteritis and colitis, unspecified; K63.89 Other specified diseases of intestine; K57.30 Diverticulosis of large intestine without perforation or abscess without bleeding; D64.9 Anemia, unspecified; I12.9 Hypertensive chronic kidney disease with stage 1 through stage 4 chronic kidney disease, or unspecified chronic kidney disease; N18.2 Chronic kidney disease, stage 2 (mild); E87.6 Hypokalemia; E86.0 Dehydration; M19.90 Unspecified osteoarthritis, unspecified site; N40.0 Benign prostatic hyperplasia without lower urinary tract symptoms; G43.909 Migraine, unspecified, not intractable, without status migrainosus; N28.1 Cyst of kidney, acquired; E11.65 Type 2 diabetes mellitus with hyperglycemia; K31.84 Gastroparesis; E11.51 Type 2 diabetes mellitus with diabetic peripheral angiopathy without gangrene; E11.43 Type 2 diabetes mellitus with diabetic autonomic (poly)neuropathy; K59.09 Other constipation; K42.9 Umbilical hernia without obstruction or gangrene; M54.5 Low back pain; E11.22 Type 2 diabetes mellitus with diabetic chronic kidney disease; R62.7 Adult failure to thrive; Z68.24 Body mass index [BMI] 24.0-24.9, adult; Z79.1 Long term (current) use of non-steroidal anti-inflammatories (NSAID)
CPT/HCPCS: 36415; 36430; 38222; 45380; 70450; 71045; 74174; 74176; 76705; 77012; 78227; 80048; 80053; 81001; 82150; 82270; 82550; 82607; 82746; 82948; 83540; 83550; 83690; 83735; 83880; 84100; 84443; 84484; 85014; 85018; 85025; 85027; 85097; 85610; 85730; 86334; 86850; 86900; 86901; 86923; 87040; 87088; 88184; 88185; 88305; 88311; 88313; 88341; 88342; 88360; 93005; 97039; A4606; A9537; C9113; G0378; J1815; J1956; J2405; J2543; J2704; J2765; J2805; J3010; J3475; J3480; J3490; J7030; J7050; P9016; Q9967

== ENCOUNTER → 2020-09-22 | Outpatient (CLI) | payer OTHER ==
[~2020-09-22] MED LIST changes: -FERR324T PO; +FERS325 PO; -FISH12002 PO; +IOHEXOL-350 50ML VIAL IV ONE; -LEVO500T90 PO; -LOSA25TA41 PO; +METO5SOL23 PO; -METR500T PO; +ONDA4TAB4 PO; -PANT40GR PO; -PRAV20TA4 PO; +SUMA25TA25 PO; -TRAM50TA4 PO
== END | disposition home or self-care (01) ==
LOC: RAH 10:43
PROVIDERS: ATTEND Internal Medicine
DX: R63.4 Abnormal weight loss (principal)
CPT/HCPCS: 71270; Q9967

== ENCOUNTER → 2020-11-04 | Outpatient (CLI) | payer OTHER ==
[~2020-11-04] MED LIST changes: -IOHEXOL-350 50ML VIAL IV ONE
== END | disposition home or self-care (01) ==
LOC: RAH 13:37
PROVIDERS: ATTEND Internal Medicine
DX: R62.7 Adult failure to thrive (principal); M89.8X9 Other specified disorders of bone, unspecified site
CPT/HCPCS: 77075

== ENCOUNTER 2021-02-06 10:12 | Emergency (ER) | payer OTHER ==
[~2021-02-06] VITALS: Ht 157.5 cm; Wt 53.1 kg
[2021-02-06 10:15] VITALS: BP 123/67
[2021-02-06 11:10] LABS: BASOPHILS % (AUTO) 0.3 % (0.0-5.0); EOSINOPHILS % (AUTO) 2.9 % (0.0-8.0); HEMATOCRIT 27.6 % (42-54); LYMPHOCYTES % (AUTO) 11.9 % (21.0-51.0); MEAN CORPUSCULAR HEMOGLOBIN 31.3 pg (27.0-33.0); MEAN CORPUSCULAR HGB CONC 31.5 g/dL (32.0-36.0); MEAN CORPUSCULAR VOLUME 99.3 fL (79-99); MONOCYTES % (AUTO) 8.8 % (3.0-13.0); NEUTROPHILS % (AUTO) 75.2 % (40.0-77.0); PLATELET COUNT (AUTO) 342 K/uL (130-400); RED BLOOD CELL COUNT(AUTO) 2.78 MIL/uL (4.50-6.20); RED CELL DISTRIBUTION WIDTH 13.4 % (11.0-15.5); WHITE BLOOD COUNT (AUTO) 8.7 K/uL (4.8-10.8)
[2021-02-06 11:39] LABS: CREATININE 1.7 mg/dL (0.5-1.5); POTASSIUM 4.2 mmol/L (3.5-5.1)
[2021-02-06 11:44] LABS: ALBUMIN 1.9 g/dL (3.5-5.0); BILIRUBIN,TOTAL 0.2 mg/dL (0.2-1.0); TOTAL PROTEIN, SERUM 7.1 g/dL (6.0-8.3)
[2021-02-06] MEDS ORDERED: HYDROCODONE/ACETAMINOPHEN 5/325 MG TAB PO ONE (12:30)
[2021-02-06 12:34] LABS: APPEARANCE,URINE Clear (CLEAR); BILIRUBIN,URINE Negative (NEGATIVE); COLOR,URINE Yellow (YELLOW); GLUCOSE, URINE (UA) Negative (NEGATIVE); KETONES,URINE Negative (NEGATIVE); LEUKOCYTE ESTERASE ,URINE Trace (NEGATIVE); NITRATE,URINE Negative (NEGATIVE); OCCULT BLOOD,URINE Moderate (NEGATIVE); PROTEIN,URINE POS 1+ mg/dL (NEGATIVE)
[2021-02-06 12:46] LABS: BACTERIA,URINE Rare /HPF (None Seen); RBC,URINE 0-1 /HPF (0-1); SQUAMOUS EPITHELIAL CELL,UR Few /HPF (0-2)
[2021-02-06] MEDS ORDERED: CEFTRIAXONE 1G VIAL IVP ONE (13:30)
[2021-02-06] MEDS ORDERED: CYCL10 PO (13:52)
[2021-02-06] MEDS ORDERED: GABA300C PO (13:52)
[2021-02-06] MEDS ORDERED: LACT10PA5 PO (13:52)
[2021-02-06] MEDS ORDERED: CEPH500B PO (14:00)
[2021-02-06] MEDS ORDERED: MAGNESIUM CITRATE 296 ML SOLUTION PO ONE (14:00)
[2021-02-06] MEDS ORDERED: LACTULOSE 20 GM/30 ML UDCUP PO ONE (14:00)
[2021-02-06 14:05] VITALS: BP 124/78
== END 2021-02-06 14:21 | disposition home or self-care (01) ==
LOC: EDH 10:12
DX: M47.816 Spondylosis without myelopathy or radiculopathy, lumbar region (principal); N39.0 Urinary tract infection, site not specified; D64.9 Anemia, unspecified; M51.86 Other intervertebral disc disorders, lumbar region; K59.00 Constipation, unspecified; N28.9 Disorder of kidney and ureter, unspecified; Z20.822 Contact with and (suspected) exposure to COVID-19; M79.605 Pain in left leg; G43.909 Migraine, unspecified, not intractable, without status migrainosus; Z79.899 Other long term (current) drug therapy
CPT/HCPCS: 36415; 71045; 72131; 80053; 81001; 85025; 86140; 87088; 87635; 87804 ×2; 93971; 96374; 99285; C9803; J0696

== ENCOUNTER 2021-08-29 11:07 | Inpatient (IN) | payer OTHER, MEDICARE ==
[~2021-08-29] VITALS: Ht 162.6 cm; Wt 48.6 kg
[~2021-08-29 11:07] MED LIST changes: +CEPH500B PO; +CYCL10TA16 PO; +GABA300C PO; +LACT10PA5 PO
[2021-08-29 11:52] LABS: BASOPHILS % (AUTO) 0.3 % (0.0-5.0); EOSINOPHILS % (AUTO) 5.9 % (0.0-8.0); HEMATOCRIT 29.4 % (42-54); LYMPHOCYTES % (AUTO) 28.7 % (21.0-51.0); MEAN CORPUSCULAR HEMOGLOBIN 33.6 pg (27.0-33.0); MEAN CORPUSCULAR VOLUME 101.7 fL (79-99); MONOCYTES % (AUTO) 6.5 % (3.0-13.0); NEUTROPHILS % (AUTO) 58.1 % (40.0-77.0); PLATELET COUNT (AUTO) 308 K/uL (130-400); RED BLOOD CELL COUNT(AUTO) 2.89 MIL/uL (4.50-6.20); RED CELL DISTRIBUTION WIDTH 13.2 % (11.0-15.5); WHITE BLOOD COUNT (AUTO) 7.6 K/uL (4.8-10.8)
[2021-08-29] MEDS ORDERED: LACTATED RINGERS 1000ML 1,000 ML IV ONE (12:00)
[2021-08-29] MEDS ORDERED: ASPIRIN 81MG CHEW TAB PO ONE (12:00)
[2021-08-29 12:08] LABS: CREATININE 3.7 mg/dL (0.5-1.5); POTASSIUM 4.4 mmol/L (3.5-5.1)
[2021-08-29 12:11] LABS: B-TYPE NATRIURETIC PEPTIDE 47 pg/mL (0-100)
[2021-08-29 12:19] LABS: ALBUMIN 2.7 g/dL (3.5-5.0); BILIRUBIN,TOTAL 0.2 mg/dL (0.2-1.0); MAGNESIUM 2.3 mg/dL (1.80-2.40); TOTAL PROTEIN, SERUM 7.5 g/dL (6.0-8.3)
[2021-08-29 12:42] LABS: INR 0.95 (0.85-1.15); PARTIAL THROMBOPLASTIN TIME 25.7 SEC (26.3-35.5); PROTHROMBIN TIME 9.9 SEC (9.6-11.6)
[2021-08-29 12:52] LABS: APPEARANCE,URINE Clear (CLEAR); BILIRUBIN,URINE Negative (NEGATIVE); COLOR,URINE Yellow (YELLOW); GLUCOSE, URINE (UA) Negative (NEGATIVE); KETONES,URINE Negative (NEGATIVE); LEUKOCYTE ESTERASE ,URINE Trace (NEGATIVE); NITRATE,URINE Negative (NEGATIVE); OCCULT BLOOD,URINE Moderate (NEGATIVE); PROTEIN,URINE POS 1+ mg/dL (NEGATIVE); UROBILINOGEN,URINE 0.2 mg/dL (0.2-1.0)
[2021-08-29 13:09] LABS: BACTERIA,URINE Rare /HPF (None Seen); MUCUS,URINE Few LPF (None Seen)
[2021-08-29] MEDS ORDERED: NITROGLYCERIN 1GM OINT 1 INCH/1GM TD ONE (14:49)
[2021-08-29] MEDS ORDERED: EXCEES PO (16:06)
[2021-08-29] MEDS ORDERED: LISI30TA4 PO (16:06)
[2021-08-29] MEDS ORDERED: NORT25CA3 PO (16:06)
[2021-08-29] MEDS ORDERED: THIAMINE HCL 100 MG/ML 2ML VIAL IVP ONE (16:30)
[2021-08-29] MEDS ORDERED: FOLIC ACID 1 MG TABLET PO ONE (16:30)
[2021-08-29 18:05] LABS: % IRON SATURATION 33.5 % (30-44)
[2021-08-29 18:10] LABS: CREATININE,URINE RANDOM 22 mg/dL (30-135); SODIUM,URINE RANDOM 31 mmol/l (40-220)
[2021-08-29] MEDS ORDERED: BISACODYL 10 MG SUPP.RECT RC ONE (19:30)
[2021-08-29] MEDS: 0.9%NACL 1000ML 1,000 ML IV SCH (20:13)
[2021-08-29] MEDS: CEFTRIAXONE 1G VIAL IVP SCH (20:13)
[2021-08-29] MEDS ORDERED: FOLIC ACID 1 MG TABLET ONE (20:15)
[2021-08-29] MEDS ORDERED: THIAMINE HCL 100 MG/ML 2ML VIAL ONE (20:15)
[2021-08-29] MEDS: DOCUSATE SODIUM 100 MG CAP PO SCH (21:09)
[2021-08-30] VITALS (8 sets, daily range): BP systolic 99–179; BP diastolic 53–88
[2021-08-30] MEDS ORDERED: HYDROCODONE/ACETAMINOPHEN 5/325 MG TAB PO ONE (02:30)
[2021-08-30] MEDS ORDERED: CLONIDINE HCL 0.1 MG TABLET ONE (03:47)
[2021-08-30] MEDS: 0.9%NACL 1000ML 1,000 ML IV SCH ×2 (03:49→16:21)
[2021-08-30] MEDS ORDERED: CLONIDINE HCL 0.1 MG TABLET PO ONE (04:00)
[2021-08-30 06:22] LABS: BASOPHILS % (AUTO) 0.5 % (0.0-5.0); EOSINOPHILS % (AUTO) 7.3 % (0.0-8.0); HEMATOCRIT 21.7 % (42-54); LYMPHOCYTES % (AUTO) 20.4 % (21.0-51.0); MEAN CORPUSCULAR HEMOGLOBIN 32.5 pg (27.0-33.0); MEAN CORPUSCULAR HGB CONC 31.8 g/dL (32.0-36.0); MEAN CORPUSCULAR VOLUME 102.4 fL (79-99); NEUTROPHILS % (AUTO) 64.5 % (40.0-77.0); PLATELET COUNT (AUTO) 237 K/uL (130-400); RED BLOOD CELL COUNT(AUTO) 2.12 MIL/uL (4.50-6.20); RED CELL DISTRIBUTION WIDTH 13.1 % (11.0-15.5); WHITE BLOOD COUNT (AUTO) 6.3 K/uL (4.8-10.8)
[2021-08-30] MEDS: PANTOPRAZOLE 40 MG/VIAL IVP SCH ×2 (06:50→18:31)
[2021-08-30 06:51] LABS: CREATININE 3.2 mg/dL (0.5-1.5); MAGNESIUM 2.2 mg/dL (1.80-2.40); POTASSIUM 4.6 mmol/L (3.5-5.1)
[2021-08-30 07:26] LABS: HEMATOCRIT 24.6 % (42-54)
[2021-08-30] MEDS: FOLIC ACID 1 MG TABLET PO SCH (08:31)
[2021-08-30] MEDS: DOCUSATE SODIUM 100 MG CAP PO SCH (08:31)
[2021-08-30] MEDS ORDERED: PANTOPRAZOLE 40 MG/VIAL IVP SCH (09:00)
[2021-08-30] MEDS ORDERED: POLYETHYLENE GLYCOL 3350 17 GM POWD.PACK PO SCH (09:00)
[2021-08-30] MEDS ORDERED: HEPARIN 5,000 UNIT VIAL SQ SCH (09:00)
[2021-08-30] MEDS: CEFTRIAXONE 1G VIAL IVP SCH (16:21)
[2021-08-30 18:56] LABS: PROTEIN,URINE RANDOM 44.8 mg/dL (0-11.9)
[2021-08-30] MEDS ORDERED: AMLODIPINE 5 MG TAB PO ONE (19:30)
[2021-08-31 03:23] VITALS: BP 162/65
[2021-08-31 04:06] LABS: BASOPHILS % (AUTO) 0.2 % (0.0-5.0); EOSINOPHILS % (AUTO) 7.8 % (0.0-8.0); HEMATOCRIT 25.8 % (42-54); LYMPHOCYTES % (AUTO) 17.2 % (21.0-51.0); MEAN CORPUSCULAR HEMOGLOBIN 33.1 pg (27.0-33.0); MEAN CORPUSCULAR HGB CONC 32.2 g/dL (32.0-36.0); MEAN CORPUSCULAR VOLUME 102.8 fL (79-99); MONOCYTES % (AUTO) 6.1 % (3.0-13.0); NEUTROPHILS % (AUTO) 68.2 % (40.0-77.0); PLATELET COUNT (AUTO) 280 K/uL (130-400); RED BLOOD CELL COUNT(AUTO) 2.51 MIL/uL (4.50-6.20)
[2021-08-31 04:13] LABS: CREATININE 2.9 mg/dL (0.5-1.5); POTASSIUM 4.3 mmol/L (3.5-5.1)
[2021-08-31 07:30] VITALS: BP 131/70
[2021-08-31] MEDS: DOCUSATE SODIUM 100 MG CAP PO SCH ×3 (09:00→21:11)
[2021-08-31] MEDS: 0.9%NACL 1000ML 1,000 ML IV SCH ×2 (09:47→21:50)
[2021-08-31] MEDS: FOLIC ACID 1 MG TABLET PO SCH (09:47)
[2021-08-31] MEDS: AMLODIPINE 5 MG TAB PO SCH (09:47)
[2021-08-31] MEDS: PANTOPRAZOLE 40 MG/VIAL IVP SCH ×2 (09:48→18:14)
[2021-08-31 12:00] VITALS: BP 146/77
[2021-08-31 16:00] VITALS: BP 126/68
[2021-08-31] MEDS: CEFTRIAXONE 1G VIAL IVP SCH (18:14)
[2021-08-31 20:03] VITALS: BP 140/67
[2021-08-31] MEDS ORDERED: LACTULOSE 20 GM/30 ML UDCUP ONE (21:37)
[2021-08-31] MEDS ORDERED: LACTULOSE 20 GM/30 ML UDCUP PO PRN (22:00)
[2021-09-01] VITALS (9 sets, daily range): BP systolic 126–154; BP diastolic 68–77
[2021-09-01 04:18] LABS: BASOPHILS % (AUTO) 0.3 % (0.0-5.0); EOSINOPHILS % (AUTO) 8.1 % (0.0-8.0); HEMATOCRIT 24.5 % (42-54); LYMPHOCYTES % (AUTO) 22.1 % (21.0-51.0); MEAN CORPUSCULAR HEMOGLOBIN 32.8 pg (27.0-33.0); MEAN CORPUSCULAR HGB CONC 32.2 g/dL (32.0-36.0); MEAN CORPUSCULAR VOLUME 101.7 fL (79-99); MONOCYTES % (AUTO) 7.2 % (3.0-13.0); NEUTROPHILS % (AUTO) 61.9 % (40.0-77.0); PLATELET COUNT (AUTO) 256 K/uL (130-400); RED BLOOD CELL COUNT(AUTO) 2.41 MIL/uL (4.50-6.20); RED CELL DISTRIBUTION WIDTH 13.1 % (11.0-15.5); WHITE BLOOD COUNT (AUTO) 7.5 K/uL (4.8-10.8)
[2021-09-01 04:29] LABS: BILIRUBIN,TOTAL 0.2 mg/dL (0.2-1.0); CREATININE 2.7 mg/dL (0.5-1.5); POTASSIUM 3.8 mmol/L (3.5-5.1)
[2021-09-01] MEDS: PANTOPRAZOLE 40 MG/VIAL IVP SCH (06:37)
[2021-09-01] MEDS: AMLODIPINE 5 MG TAB PO SCH (10:13)
[2021-09-01] MEDS: FOLIC ACID 1 MG TABLET PO SCH (10:13)
[2021-09-01] MEDS: DOCUSATE SODIUM 100 MG CAP PO SCH ×2 (10:13→22:19)
[2021-09-01] MEDS: 0.9%NACL 1000ML 1,000 ML IV SCH (11:10)
[2021-09-01] MEDS ORDERED: FENTANYL CITRATE PF 50 MCG/1 ML 2ML VIAL ONE (13:35)
[2021-09-01] MEDS ORDERED: MIDAZOLAM HCL 1 MG/ML 2ML VIAL ONE (13:35)
[2021-09-01] MEDS: CEFTRIAXONE 1G VIAL IVP SCH (17:53)
[2021-09-01] MEDS ORDERED: MEGESTROL 400 MG/10 ML UDCUP PO SCH (21:00)
[2021-09-01] MEDS: PANTOPRAZOLE 40 MG TAB DR PO SCH (22:19)
[2021-09-02] VITALS: BP 146/72
[2021-09-02 03:54] LABS: BASOPHILS % (AUTO) 0.3 % (0.0-5.0); EOSINOPHILS % (AUTO) 7.5 % (0.0-8.0); LYMPHOCYTES % (AUTO) 19.3 % (21.0-51.0); MEAN CORPUSCULAR HEMOGLOBIN 32.7 pg (27.0-33.0); MEAN CORPUSCULAR HGB CONC 31.8 g/dL (32.0-36.0); MEAN CORPUSCULAR VOLUME 102.8 fL (79-99); MONOCYTES % (AUTO) 6.3 % (3.0-13.0); NEUTROPHILS % (AUTO) 66.2 % (40.0-77.0); PLATELET COUNT (AUTO) 239 K/uL (130-400); RED BLOOD CELL COUNT(AUTO) 2.14 MIL/uL (4.50-6.20); RED CELL DISTRIBUTION WIDTH 13.3 % (11.0-15.5); WHITE BLOOD COUNT (AUTO) 7.2 K/uL (4.8-10.8)
[2021-09-02 04:00] VITALS: BP 149/76
[2021-09-02 04:13] LABS: ALBUMIN 1.8 g/dL (3.5-5.0); BILIRUBIN,TOTAL 0.1 mg/dL (0.2-1.0); CREATININE 2.6 mg/dL (0.5-1.5); TOTAL PROTEIN, SERUM 5.6 g/dL (6.0-8.3)
[2021-09-02] MEDS: 0.9%NACL 1000ML 1,000 ML IV SCH ×2 (05:52→14:57)
[2021-09-02 08:00] VITALS: BP 180/84
[2021-09-02] MEDS: PANTOPRAZOLE 40 MG TAB DR PO SCH (08:59)
[2021-09-02] MEDS: AMLODIPINE 5 MG TAB PO SCH (08:59)
[2021-09-02] MEDS: DOCUSATE SODIUM 100 MG CAP PO SCH (08:59)
[2021-09-02] MEDS: FOLIC ACID 1 MG TABLET PO SCH (08:59)
[2021-09-02] MEDS ORDERED: DIPHENHYDRAMINE HCL 25 MG CAPSULE PO SCH (09:30)
[2021-09-02 12:02] VITALS: BP 157/76
[2021-09-02] MEDS ORDERED: HYDRALAZINE 20MG/ML VIAL IV PRN (12:30)
[2021-09-02] MEDS ORDERED: SUMATRIPTAN SUCCINATE 25 MG TABLET PO PRN (14:00)
[2021-09-02] MEDS ORDERED: FLUC100T12 PO (14:24)
[2021-09-02 16:00] VITALS: BP 144/67
[2021-09-02] MEDS ORDERED: METOCLOPRAMIDE 5 MG TABLET PO SCH (16:30)
[2021-09-02] MEDS: CEFTRIAXONE 1G VIAL IVP SCH (16:41)
[2021-09-02] MEDS ORDERED: NORTRIPTYLINE HCL 25 MG CAPSULE PO SCH (21:00)
[2021-09-02] MEDS ORDERED: LISINOPRIL 10 MG TABLET PO SCH (21:00)
[2021-09-02] MEDS ORDERED: GABAPENTIN 300 MG CAPSULE PO SCH (21:00)
[2021-09-02] MEDS ORDERED: MIRTAZAPINE 15 MG TABLET PO SCH (21:00)
[2021-09-02] MEDS ORDERED: CYCLOBENZAPRINE HCL 10 MG TABLET PO SCH (21:00)
[2021-09-03] MEDS ORDERED: FERROUS SULFATE 325 MG TABLET.DR PO SCH (09:00)
[2021-09-03] MEDS ORDERED: POLYETHYLENE GLYCOL 3350 17 GM POWD.PACK PO SCH (09:00)
[2021-09-03] MEDS ORDERED: LACTULOSE 20 GM/30 ML UDCUP PO SCH (09:00)
== END 2021-09-02 18:50 | DRG 682 ==
LOC: EDH 11:07 → EDHIP 16:06 → 4AH 08-30 02:46 → 4BH 08-30 10:15
PROVIDERS: ADMIT Internal Medicine; ATTEND Internal Medicine
PROC: 079T3ZX Drainage of Bone Marrow, Percutaneous Approach, Diagnostic (ICD-10-PCS; 2021-09-01)
PROC: 30233N1 Transfusion of Nonautologous Red Blood Cells into Peripheral Vein, Percutaneous Approach (ICD-10-PCS; principal; 2021-09-02)
DX: N17.9 Acute kidney failure, unspecified (principal); E43 Unspecified severe protein-calorie malnutrition; N39.0 Urinary tract infection, site not specified; Z68.1 Body mass index [BMI] 19.9 or less, adult; Z20.822 Contact with and (suspected) exposure to COVID-19; D53.9 Nutritional anemia, unspecified; E83.52 Hypercalcemia; I12.9 Hypertensive chronic kidney disease with stage 1 through stage 4 chronic kidney disease, or unspecified chronic kidney disease; E86.0 Dehydration; K59.00 Constipation, unspecified; N18.2 Chronic kidney disease, stage 2 (mild); Z74.01 Bed confinement status; Z82.0 Family history of epilepsy and other diseases of the nervous system; Z82.3 Family history of stroke; Z82.49 Family history of ischemic heart disease and other diseases of the circulatory system; Z82.5 Family history of asthma and other chronic lower respiratory diseases; Z83.3 Family history of diabetes mellitus
CPT/HCPCS: 36415; 38222; 70450; 70490; 71045; 74176; 77012; 80048; 80053; 80061; 81001; 82306; 82550; 82570; 82607; 82728; 82746; 83540; 83550; 83735; 83874; 83880; 83970; 84145; 84156; 84166; 84300; 84443; 84484; 85014; 85018; 85025; 85378; 85610; 85651; 85730; 86140; 86325; 86334; 86850; 86900; 86901; 86923; 87071; 87088; 87205; 87635; 87804; 92610; 93005; 93970; 97039; 99291; C9113; G0378; J0696; J2250; J3010; J3411; J7030; J7120; P9016; Q0163

== ENCOUNTER → 2021-09-20 | Outpatient (CLI) | payer OTHER, MEDICARE ==
[~2021-09-20] MED LIST changes: -CEPH500B PO; +FLUC100T12 PO; +LISI30TA4 PO; +NORT25CA3 PO; -SUMA25TA25 PO
== END | disposition home or self-care (01) ==
LOC: RAH 10:19
PROVIDERS: ATTEND Psychiatry & Neurology Neurology
DX: G60.9 Hereditary and idiopathic neuropathy, unspecified (principal)
CPT/HCPCS: 70551